=== PATIENT | female | born 1985 | race Caucasian/White ===

== ENCOUNTER 2016-06-25 22:59 | Emergency (ER) | payer MEDICAID ==
[~2016-06-25] VITALS: Ht 167.6 cm; Wt 52.6 kg
[2016-06-25 23:10] VITALS: BP 113/68; PULSE 61; RESP 14; TEMP 97; O2SAT 98
[2016-06-26 01:39] VITALS: BP 115/67; PULSE 65; RESP 14; TEMP 97.5; O2SAT 98
== END 2016-06-26 01:39 | disposition home or self-care (01) ==
LOC: SED 22:59
DX: B86 Scabies (principal); Z88.2 Allergy status to sulfonamides; Z88.1 Allergy status to other antibiotic agents
CPT/HCPCS: 99283